=== PATIENT | female | born 1985 | race Caucasian/White ===

== ENCOUNTER → 2021-02-10 | Outpatient (CLI) | payer SELFPAY ==
[2021-02-10 20:11] LABS: BASOPHILS ABSOLUTE AUTO 0.04 K/mm3 (0.00-0.23); BASOPHILS PERCENT AUTO 1 % (0-2); EOSINOPHILS ABSOLUTE AUTO 0.04 K/mm3 (0.00-0.68); EOSINOPHILS PERCENT AUTO 1 % (0-6); Hematocrit 41.6 % (33.0-51.0); Hemoglobin 14.3 g/dL (11.5-16.0); IMMATURE GRAN ABSOLUTE AUTO 0.02 K/mm3 (0.00-0.10); IMMATURE GRAN PERCENT AUTO 0 % (0-1); LYMPHOCYTES ABSOLUTE AUTO 1.38 K/mm3 (0.84-5.20); LYMPHOCYTES PERCENT AUTO 28 % (21-46); MONOCYTES ABSOLUTE AUTO 0.31 K/mm3 (0.16-1.47); MONOCYTES PERCENT AUTO 6 % (4-13); Mean Corpuscular HGB 37.9 pg (26.0-34.0); Mean Corpuscular HGB Conc 34.4 g/dL (31.5-36.5); Mean Corpuscular Volume 110 fL (80-100); Mean Platelet Volume 10.7 fL (9.1-12.4); NEUTROPHILS ABSOLUTE AUTO 3.19 K/mm3 (1.96-9.15); NEUTROPHILS PERCENT AUTO 64 % (41-73); Platelet Count 224 K/mm3 (150-400); RDW Coefficient Variation 12.9 % (11.7-14.2); RDW Standard Deviation 52.8 fL (35.1-46.3); Red Blood Cell Count 3.77 M/mm3 (3.80-5.20); White Blood Cell Count 4.98 K/mm3 (4.00-11.30)
[2021-02-10 20:28] LABS: Alanine Aminotransfer (ALT/SGP 53 U/L (12-78); Albumin, Blood 3.5 g/dL (3.4-5.0); Alk Phos 91 U/L (50-136); Anion Gap 5 mmol/L (6-16); Aspartate Aminotrans (AST/SGOT 102 U/L (12-37); Bilirubin, Total 1.4 mg/dL (0.1-1.0); Blood Urea Nitrogen 12 mg/dL (8-24); Bun/Creatinine Ratio 30.7 (12.0-20.0); CO2, Blood 29 mmol/L (21-32); Calcium, Blood 8.9 mg/dL (8.5-10.1); Chloride, Blood 104 mmol/L (98-108); Creatinine, Blood 0.39 mg/dL (0.40-1.00); Globulin, Blood 3.4 g/dL (2.2-4.0); Glomerular Filtration Rate >60 (60-); Glucose, Blood 79 mg/dL (70-99); Sodium, Blood 138 mmol/L (136-145); Total Protein, Blood 6.9 g/dL (6.4-8.2)
[2021-02-10 20:32] LABS: Luteinizing Hormone 5.2 mIU/ml
== END | disposition home or self-care (01) ==
LOC: LAB SHORT 15:00
PROVIDERS: Family Medicine
DX: N39.0 Urinary tract infection, site not specified (principal); G62.9 Polyneuropathy, unspecified; N91.2 Amenorrhea, unspecified
CPT/HCPCS: 80053; 82607; 82746; 83001; 83002; 84146; 84443; 85025; 87086

== ENCOUNTER → 2021-06-08 | Outpatient (CLI) | payer OTHER ==
[~2021-06-08] MED LIST: GABA300 PO
[2021-06-08 14:08] LABS: Alanine Aminotransfer (ALT/SGP 58 U/L (12-78); Albumin, Blood 3.6 g/dL (3.4-5.0); Alk Phos 87 U/L (50-136); Anion Gap 8 mmol/L (6-16); Aspartate Aminotrans (AST/SGOT 64 U/L (12-37); Bilirubin, Total 1.4 mg/dL (0.1-1.0); Blood Urea Nitrogen 10 mg/dL (8-24); Bun/Creatinine Ratio 18.4 (12.0-20.0); CO2, Blood 23 mmol/L (21-32); Calcium, Blood 9.9 mg/dL (8.5-10.1); Chloride, Blood 106 mmol/L (98-108); Creatinine, Blood 0.54 mg/dL (0.40-1.00); Globulin, Blood 3.7 g/dL (2.2-4.0); Glomerular Filtration Rate >60 (60-); Glucose, Blood 95 mg/dL (70-99); Potassium, Blood 3.7 mmol/L (3.5-5.5); Sodium, Blood 137 mmol/L (136-145); Total Protein, Blood 7.3 g/dL (6.4-8.2)
[2021-06-09 08:10] LABS: HBSAG SCREEN Negative (Negative); HEP B CORE AB, TOT Negative (Negative); HEP C VIRUS AB <0.1 (0.0-0.9)
[2021-06-09 10:10] LABS: HIV SCREEN 4TH GENERATION WRFX Non Reactive (Non Reactive)
== END ==
LOC: LAB 12:00 → LAB SHORT 12:00
PROVIDERS: Family Medicine
DX: Z11.3 Encounter for screening for infections with a predominantly sexual mode of transmission (principal); R74.01 Elevation of levels of liver transaminase levels
CPT/HCPCS: 80053; 86704; 86708; 86803; 87340; 87389

== ENCOUNTER → 2023-04-18 | Outpatient (CLI) | payer BC, OTHER ==
[~2023-04-18] MED LIST changes: +Aldactone100 MG PO
== END ==
LOC: LAB SHORT 17:50 → LAB 17:50
DX: N39.0 Urinary tract infection, site not specified (principal)
CPT/HCPCS: 87086

== ENCOUNTER → 2023-07-21 | Outpatient (CLI) | payer BC, OTHER ==
[2023-07-21 15:26] LABS: Candida species (DNA Probe) Negative (NEGATIVE); G. vaginalis (DNA Probe) Negative (NEGATIVE); T. vaginalis (DNA Probe) Negative (NEGATIVE)
== END | disposition home or self-care (01) ==
LOC: LAB SHORT 11:58 → LAB 11:58
PROVIDERS: Registered Nurse Community Health
DX: N89.8 Other specified noninflammatory disorders of vagina (principal); R35.0 Frequency of micturition
CPT/HCPCS: 87077; 87086; 87186; 87480; 87510; 87660

== ENCOUNTER 2023-08-31 07:35 | Emergency (ER) | payer OTHER, BC ==
[~2023-08-31] VITALS: Ht 170.2 cm; Wt 59.0 kg
[2023-08-31] MEDS ORDERED: Ketorolac Tromethamine 30mg Vial IM ONE (08:30)
[2023-08-31 08:37] LABS: Source, Urine Clean Catch
[2023-08-31 08:43] LABS: Appearance, Urine Hazy (Clear); Blood, Urine Neg (Neg); Color, Urine Yellow (P-Yellow); Glucose Qualitative, Urine Neg (Neg); Ketones, Urine 2+ (Neg); Leukocyte Esterase, Urine 3+ (Neg); Nitrite, Urine Neg (Neg); Protein, Urine 2+ (Neg); Urobilinogen, Urine 3+ (Normal)
[2023-08-31 08:50] LABS: Bilirubin, Urine 2+ (Neg)
[2023-08-31 08:53] LABS: Bacteria Few /hpf; Mucus Light (0-Heavy); Squamous Epithelial Cells Many /hpf (Few)
[2023-08-31] MEDS ORDERED: FentaNYL Citrate 50 MCG/ML 2 ML Injection IV ONE (10:30)
[2023-08-31] MEDS ORDERED: LORazepam 2 MG/ML 1ML Injection IV ONE (11:10)
[2023-08-31 12:09] LABS: Albumin, Blood 3.7 g/dL (3.4-5.0); Bilirubin, Total 1.5 mg/dL (0.1-1.0); Bun/Creatinine Ratio 15.6 (12.0-20.0); Calcium, Blood 9.3 mg/dL (8.5-10.1); Creatinine, Blood 0.77 mg/dL (0.40-1.00); Globulin, Blood 3.8 g/dL (2.2-4.0); Total Protein, Blood 7.5 g/dL (6.4-8.2)
[2023-08-31 12:25] LABS: BASOPHILS ABSOLUTE AUTO 0.05 K/mm3 (0.00-0.23); BASOPHILS PERCENT AUTO 1 % (0-2); EOSINOPHILS PERCENT AUTO 0 % (0-6); Hematocrit 35.8 % (33.0-51.0); Hemoglobin 13.4 g/dL (11.5-16.0); IMMATURE GRAN ABSOLUTE AUTO 0.02 K/mm3 (0.00-0.10); IMMATURE GRAN PERCENT AUTO 0 % (0-1); LYMPHOCYTES ABSOLUTE AUTO 1.48 K/mm3 (0.84-5.20); LYMPHOCYTES PERCENT AUTO 21 % (21-46); MONOCYTES ABSOLUTE AUTO 0.93 K/mm3 (0.16-1.47); MONOCYTES PERCENT AUTO 13 % (4-13); Mean Corpuscular HGB Conc 37.4 g/dL (31.5-36.5); Mean Corpuscular Volume 107 fL (80-100); Mean Platelet Volume 10.9 fL (9.1-12.4); NEUTROPHILS ABSOLUTE AUTO 4.75 K/mm3 (1.96-9.15); NEUTROPHILS PERCENT AUTO 66 % (41-73); Platelet Count 204 K/mm3 (150-400); RDW Coefficient Variation 12.8 % (11.7-14.2); RDW Standard Deviation 50.4 fL (35.1-46.3); Red Blood Cell Count 3.35 M/mm3 (3.80-5.20); White Blood Cell Count 7.23 K/mm3 (4.00-11.30)
[2023-08-31] MEDS ORDERED: HYDROCODONE-AC473 ML PO (12:48)
[2023-08-31 13:13] VITALS: BP 126/76
[2023-08-31] MEDS ORDERED: Norco 5-325 Ta1 EACH PO (13:22)
== END 2023-08-31 13:29 | disposition home or self-care (01) ==
LOC: ER 07:35
PROVIDERS: Physician Assistant
DX: S02.612A Fracture of condylar process of left mandible, initial encounter for closed fracture (principal); S02.611A Fracture of condylar process of right mandible, initial encounter for closed fracture; S02.622A Fracture of subcondylar process of left mandible, initial encounter for closed fracture; S02.621A Fracture of subcondylar process of right mandible, initial encounter for closed fracture; W01.0XXA Fall on same level from slipping, tripping and stumbling without subsequent striking against object, initial encounter; S01.81XA Laceration without foreign body of other part of head, initial encounter; F17.290 Nicotine dependence, other tobacco product, uncomplicated; Z79.899 Other long term (current) drug therapy
CPT/HCPCS: 12011; 70450; 70486; 71101; 72125; 80053; 81001; 81025; 85025; 87086; 96372-59; 96374-59; 96375-59; 99284-25; J1885; J2060; J3010; L0160

== ENCOUNTER 2024-05-06 12:24 | Observation (INO) | payer BC, OTHER ==
[~2024-05-06] VITALS: Ht 170.2 cm; Wt 54.4 kg
[~2024-05-06 12:24] MED LIST changes: -KLOR-CON 1010 ME9 PO; -MULVITA PO; -SPIR25 PO
[2024-05-06] MEDS ORDERED: LORazepam 2 MG/ML 1ML Injection IV ONE (13:15)
[2024-05-06] MEDS ORDERED: NS 1,000 ML IV SCH ×2 (13:15→16:50)
[2024-05-06] MEDS ORDERED: DiphenhydrAMINE HCl 50 MG/ML 1ML Vial IV ONE (13:15)
[2024-05-06 14:46] LABS: Ethanol (Alcohol), Blood, Med <3 mg/dL
[2024-05-06 14:51] LABS: Alanine Aminotransfer (ALT/SGP 33 U/L (12-78); Albumin, Blood 3.8 g/dL (3.4-5.0); Alk Phos 119 U/L (50-136); Anion Gap 23 mmol/L (3-11); Aspartate Aminotrans (AST/SGOT 68 U/L (12-37); Bilirubin, Total 3.6 mg/dL (0.1-1.0); Blood Urea Nitrogen 20 mg/dL (8-24); Bun/Creatinine Ratio 27.4 (12.0-20.0); CO2, Blood 23 mmol/L (21-32); Calcium, Blood 8.6 mg/dL (8.5-10.1); Chloride, Blood 86 mmol/L (98-108); Creatinine, Blood 0.73 mg/dL (0.40-1.00); Globulin, Blood 3.9 g/dL (2.2-4.0); Glomerular Filtration Rate 108 (60-); Glucose, Blood 103 mg/dL (70-99); Phosphorus, Blood 0.7 mg/dL (2.5-4.9); Potassium, Blood 2.8 mmol/L (3.5-5.5); Sodium, Blood 129 mmol/L (136-145); Total Protein, Blood 7.7 g/dL (6.4-8.2)
[2024-05-06 15:01] LABS: BASOPHILS ABSOLUTE AUTO 0.05 K/mm3 (0.00-0.23); BASOPHILS PERCENT AUTO 0 % (0-2); EOSINOPHILS PERCENT AUTO 0 % (0-6); Hemoglobin 14.1 g/dL (11.5-16.0); IMMATURE GRAN ABSOLUTE AUTO 0.08 K/mm3 (0.00-0.10); IMMATURE GRAN PERCENT AUTO 1 % (0-1); LYMPHOCYTES PERCENT AUTO 8 % (21-46); MONOCYTES ABSOLUTE AUTO 0.98 K/mm3 (0.16-1.47); MONOCYTES PERCENT AUTO 7 % (4-13); Mean Corpuscular HGB 39.9 pg (26.0-34.0); Mean Corpuscular Volume 108 fL (80-100); Mean Platelet Volume 11.4 fL (9.1-12.4); NEUTROPHILS ABSOLUTE AUTO 12.46 K/mm3 (1.96-9.15); NEUTROPHILS PERCENT AUTO 85 % (41-73); NRBC ABSOLUTE 0.02 K/mm3 (0.00-0.02); NRBC Auto 0.1 /100 WBC (0.0-0.2); Platelet Count 291 K/mm3 (150-400); RDW Coefficient Variation 13.3 % (11.7-14.2); RDW Standard Deviation 53.4 fL (35.1-46.3); Red Blood Cell Count 3.53 M/mm3 (3.80-5.20); White Blood Cell Count 14.77 K/mm3 (4.00-11.30)
[2024-05-06 15:05] LABS: Mean Corpuscular HGB Conc 37.1 g/dL (31.5-36.5)
[2024-05-06] MEDS ORDERED: Mag Sulfate 1 GM/D5% 100ML 100 ML IV ONE (15:15)
[2024-05-06] MEDS ORDERED: Folic Acid 1 MG TAB PO ONE (15:15)
[2024-05-06] MEDS ORDERED: Thiamine HCl 100 MG in NS 50 ML IV ONE (15:15)
[2024-05-06] MEDS ORDERED: Potassium Chl 20MEQ/Water100ML 100 ML IV ONE (15:55)
[2024-05-06] MEDS ORDERED: Lactated Ringer's 1,000 ML IV SCH (16:50)
[2024-05-06] MEDS ORDERED: FLU VACC TS2024-25(6MOS UP)/PF 45 MCG/0.5 ML SYRINGE IM PRN (16:55)
[2024-05-06] MEDS ORDERED: Sodium Phosphate 20 MM in Dextrose 5% 500 ML IV STA (16:56)
[2024-05-06] MEDS ORDERED: Potassium Chloride 20 MEQ/15 ML UDC PO ONE ×2 (17:00)
[2024-05-06] MEDS ORDERED: Magnesium Sulf 2 GM/Water 50ML 50 ML IV ONE (17:00)
[2024-05-06 18:38] LABS: Influenza A, PCR NEGATIVE (NEGATIVE); Influenza B, PCR NEGATIVE (NEGATIVE); Resp Syncytial Virus, PCR NEGATIVE (NEGATIVE); SARS-Cov-2 (COVID-19) PCR, MMC NEGATIVE (NEGATIVE)
[2024-05-06] MEDS ORDERED: SPIR25 PO (19:21)
[2024-05-06 19:24] VITALS: BP 104/73
[2024-05-06] MEDS ORDERED: Acetaminophen 500 MG Tab PO ONE (22:45)
[2024-05-06 23:14] LABS: Bun/Creatinine Ratio 25.2 (12.0-20.0); Calcium, Blood 7.3 mg/dL (8.5-10.1); Creatinine, Blood 0.52 mg/dL (0.40-1.00); Potassium, Blood 2.4 mmol/L (3.5-5.5)
[2024-05-06] MEDS ORDERED: Potassium Chloride 20 MEQ TabCR PO ONE (23:30)
[2024-05-06] MEDS ORDERED: POTASSIUM PHOSPHATE DIBASIC IV ONE (23:35)
[2024-05-07] MEDS ORDERED: Potassium Chl 20MEQ/Water100ML 100 ML IV SCH (00:05)
[2024-05-07] MEDS ORDERED: Potassium Chloride 20 MEQ TabCR PO ONE ×2 (03:25→07:35)
[2024-05-07 04:01] VITALS: BP 89/57
[2024-05-07 05:20] LABS: BASOPHILS ABSOLUTE AUTO 0.04 K/mm3 (0.00-0.23); BASOPHILS PERCENT AUTO 1 % (0-2); EOSINOPHILS ABSOLUTE AUTO 0.05 K/mm3 (0.00-0.68); EOSINOPHILS PERCENT AUTO 1 % (0-6); Hematocrit 28.8 % (33.0-51.0); Hemoglobin 10.6 g/dL (11.5-16.0); IMMATURE GRAN ABSOLUTE AUTO 0.04 K/mm3 (0.00-0.10); IMMATURE GRAN PERCENT AUTO 1 % (0-1); LYMPHOCYTES ABSOLUTE AUTO 1.93 K/mm3 (0.84-5.20); LYMPHOCYTES PERCENT AUTO 27 % (21-46); MONOCYTES PERCENT AUTO 7 % (4-13); Mean Corpuscular HGB 40.2 pg (26.0-34.0); Mean Corpuscular HGB Conc 36.8 g/dL (31.5-36.5); Mean Corpuscular Volume 109 fL (80-100); Mean Platelet Volume 10.1 fL (9.1-12.4); NEUTROPHILS ABSOLUTE AUTO 4.69 K/mm3 (1.96-9.15); NEUTROPHILS PERCENT AUTO 65 % (41-73); Platelet Count 175 K/mm3 (150-400); RDW Coefficient Variation 13.7 % (11.7-14.2); RDW Standard Deviation 54.9 fL (35.1-46.3); Red Blood Cell Count 2.64 M/mm3 (3.80-5.20); White Blood Cell Count 7.25 K/mm3 (4.00-11.30)
[2024-05-07 05:50] LABS: Albumin, Blood 2.9 g/dL (3.4-5.0); Bilirubin, Total 1.3 mg/dL (0.1-1.0); Bun/Creatinine Ratio 21.5 (12.0-20.0); Calcium, Blood 7.4 mg/dL (8.5-10.1); Creatinine, Blood 0.51 mg/dL (0.40-1.00); Magnesium, Blood 2.3 mg/dL (1.6-2.4); Potassium, Blood 2.8 mmol/L (3.5-5.5); Total Protein, Blood 5.9 g/dL (6.4-8.2)
--- NOTE | 2024-05-07 05:56 | NUR ---
SHIFT SUMMARY PT IS ALERT AND ORIENTED TIMES 4 BED. PT ADMITTED FROM ED FOR ABNORMAL ELECTROLYTE IMBALANCE AND CARPOPEDAL SPASMS. PT HAS HX OF PTSD, DEPRESSION, ALCOHOLISM, AND METH ABUSE. AT APPROXIMATELY 2300 RECEIVED CRITICAL LAB RESULT OF 2.4 POTASSIUM LEVEL. HEATER HELPER FORGE CONTACTED AND ADMINISTER 40MEQ OF POTASSIUM AND STARTED POTASSIUM CHLORIDE 20MEQ/100ML TIMES 3. PT WAS ABLE TO FINISH 1 BAG BUT BURNING BECAME UNBEARABLE AND HEATER HELPER FORGE WAS CONTACTED AND NEW ORDER OBTAINED FOR ADDITIONAL 40MEQ OF POTASSIUM. LAB LEVELS TO BE DRAWN THIS AM. PT WISHES TO MAKE SURE SHE CAN GET A NOTE FROM DR OR NURSE FOR WORK. PT APPEARS TO BE RESTING COMFORTABLY IN BED. BED IN LOW POSITION, CALL LIGHT WITHIN REACH, RAILS TIMES 2.
[2024-05-07 07:03] VITALS: BP 92/66
[2024-05-07] MEDS ORDERED: Potassium Phosphate Dibasic 30 MM in Dextrose 5% 500 ML IV STA (07:34)
[2024-05-07] MEDS ORDERED: Folic Acid 1 MG TAB PO SCH (09:00)
[2024-05-07] MEDS ORDERED: Multivitamins 1 Tab PO SCH (09:00)
[2024-05-07] MEDS ORDERED: Thiamine HCl 100 MG Tab PO SCH (09:00)
[2024-05-07] MEDS ORDERED: Enoxaparin 40 MG/0.4 ML SYR SC SCH (09:00)
[2024-05-07] MEDS ORDERED: Lactated Ringer's 1,000 ML IV SCH (11:50)
[2024-05-07 12:03] LABS: Source, Urine Clean Catch
[2024-05-07 12:11] LABS: Bilirubin, Urine Neg (Neg); Blood, Urine Neg (Neg); Glucose Qualitative, Urine Neg (Neg); Ketones, Urine Neg (Neg); Leukocyte Esterase, Urine Neg (Neg); Nitrite, Urine Neg (Neg); Protein, Urine Neg (Neg); Urobilinogen, Urine 1+ (Normal)
[2024-05-07 12:15] LABS: Appearance, Urine Clear (Clear); Color, Urine Yellow (P-Yellow)
[2024-05-07 12:54] LABS: U Amphetamine Screen Not Detected; U Barbituate Screen Not Detected; U Benzodiazapine Screen DETECTED; U Buprenorphine Screen Not Detected; U Cannabinoids Screen Not Detected; U Cocaine Screen Not Detected; U Methadone Screen Not Detected; U Methamphetamine Screen Not Detected; U Opiates Screen Not Detected; U Oxycodone Screen Not Detected; U Phencyclidine Screen Not Detected
[2024-05-07] MEDS ORDERED: KLOR-CON 1010 ME9 PO (13:41)
[2024-05-07] MEDS ORDERED: MULVITA PO (13:42)
--- NOTE | 2024-05-07 14:30 | NUR ---
DISCHARGED TO HOME WITH A FRIEND
--- NOTE | 2024-05-07 15:40 | NUR ---
THIS MEDICINE TECH HAS REVIEWED AND AGREES WITH ALL ASSESSMENTS BY ALEISHA PEDRAZA.
== END 2024-05-07 14:27 | disposition home or self-care (01) ==
LOC: ER 12:24 → MEDS 12:25
PROVIDERS: Nurse Practitioner Acute Care; Student in an Organized Health Care Education/Training Program; ADMIT Internal Medicine
DX: E87.8 Other disorders of electrolyte and fluid balance, not elsewhere classified (principal); A41.9 Sepsis, unspecified organism; F10.20 Alcohol dependence, uncomplicated; E80.6 Other disorders of bilirubin metabolism; F43.10 Post-traumatic stress disorder, unspecified; F17.290 Nicotine dependence, other tobacco product, uncomplicated; Z79.899 Other long term (current) drug therapy
CPT/HCPCS: 0241U; 36415; 71045; 80048; 80053; 80320; 81003; 81025; 83735; 84100; 84132; 85025; 93005; 93010; 96365; 96366; 96367; 96368; 96372; 96375; 96376; 99285-25; A9270; G0378; J1200; J1650; J2060; J3411; J3475; J3480; J7060; J7120

== ENCOUNTER → 2024-05-06 | Outpatient (CLI) | payer BC, OTHER ==
[~2024-05-06] MED LIST changes: +HYDROCODONE-AC473 ML PO; +KLOR-CON 1010 ME9 PO; +MULVITA PO; +Norco 5-325 Ta1 EACH PO; +SPIR25 PO
[2024-05-06 12:27] LABS: BASOPHILS ABSOLUTE AUTO 0.07 K/mm3 (0.00-0.23); BASOPHILS PERCENT AUTO 1 % (0-2); EOSINOPHILS ABSOLUTE AUTO 0.02 K/mm3 (0.00-0.68); EOSINOPHILS PERCENT AUTO 0 % (0-6); Hematocrit 38.9 % (33.0-51.0); Hemoglobin 14.3 g/dL (11.5-16.0); IMMATURE GRAN ABSOLUTE AUTO 0.05 K/mm3 (0.00-0.10); IMMATURE GRAN PERCENT AUTO 1 % (0-1); LYMPHOCYTES ABSOLUTE AUTO 2.17 K/mm3 (0.84-5.20); LYMPHOCYTES PERCENT AUTO 22 % (21-46); MONOCYTES ABSOLUTE AUTO 0.87 K/mm3 (0.16-1.47); MONOCYTES PERCENT AUTO 9 % (4-13); Mean Corpuscular HGB 40.2 pg (26.0-34.0); Mean Corpuscular HGB Conc 36.8 g/dL (31.5-36.5); Mean Corpuscular Volume 109 fL (80-100); Mean Platelet Volume 11.2 fL (9.1-12.4); NEUTROPHILS ABSOLUTE AUTO 6.52 K/mm3 (1.96-9.15); NEUTROPHILS PERCENT AUTO 67 % (41-73); Platelet Count 282 K/mm3 (150-400); RDW Coefficient Variation 13.4 % (11.7-14.2); RDW Standard Deviation 54.4 fL (35.1-46.3); Red Blood Cell Count 3.56 M/mm3 (3.80-5.20)
[2024-05-06 12:48] LABS: Albumin, Blood 4.4 g/dL (3.4-5.0); Bilirubin, Total 3.4 mg/dL (0.1-1.0); Bun/Creatinine Ratio 17.1 (12.0-20.0); Creatinine, Blood 1.17 mg/dL (0.40-1.00); Globulin, Blood 4.3 g/dL (2.2-4.0); Magnesium, Blood 1.2 mg/dL (1.6-2.4); Potassium, Blood 3.6 mmol/L (3.5-5.5); Thyroid Stimulating Hormone 1.571 uIU/mL (0.360-4.800); Total Protein, Blood 8.7 g/dL (6.4-8.2)
== END ==
LOC: LAB 12:23 → LAB SHORT 12:23
PROVIDERS: Physician Assistant Surgical
DX: R42 Dizziness and giddiness (principal); R53.83 Other fatigue
CPT/HCPCS: 80053; 82607; 82746; 83735; 84443; 85025; 85379

== ENCOUNTER 2024-11-25 21:41 | Inpatient (IN) | payer BC, OTHER ==
[~2024-11-25] VITALS: Ht 167.6 cm; Wt 60.2 kg
[~2024-11-25 21:41] MED LIST changes: +KLOR-CON 1010 ME9 PO; +MULVITA PO; +SPIR25 PO
[2024-11-25] MEDS ORDERED: NS 1,000 ML IV ONE ×2 (22:16→22:56)
[2024-11-25 22:30] LABS: Base Excess Venous -24.8 mmol/L; PCO2 Venous 21.5 mmHg (38-42)
[2024-11-25 22:32] LABS: pH Blood Venous 7.04 (7.34-7.37)
[2024-11-25 22:39] LABS: BASOPHILS PERCENT AUTO 0 % (0-2); EOSINOPHILS ABSOLUTE AUTO 0.01 K/mm3 (0.00-0.68); EOSINOPHILS PERCENT AUTO 0 % (0-6); Hematocrit 44.2 % (33.0-51.0); Hemoglobin 15.6 g/dL (11.5-16.0); IMMATURE GRAN ABSOLUTE AUTO 0.45 K/mm3 (0.00-0.10); IMMATURE GRAN PERCENT AUTO 2 % (0-1); LYMPHOCYTES ABSOLUTE AUTO 1.18 K/mm3 (0.84-5.20); LYMPHOCYTES PERCENT AUTO 4 % (21-46); MONOCYTES ABSOLUTE AUTO 2.58 K/mm3 (0.16-1.47); MONOCYTES PERCENT AUTO 9 % (4-13); Mean Corpuscular HGB 37.6 pg (26.0-34.0); Mean Corpuscular HGB Conc 35.3 g/dL (31.5-36.5); Mean Corpuscular Volume 107 fL (80-100); Mean Platelet Volume 11.6 fL (9.1-12.4); NEUTROPHILS PERCENT AUTO 85 % (41-73); Platelet Count 301 K/mm3 (150-400); RDW Coefficient Variation 11.9 % (11.7-14.2); RDW Standard Deviation 47.2 fL (35.1-46.3); Red Blood Cell Count 4.15 M/mm3 (3.80-5.20); White Blood Cell Count 28.02 K/mm3 (4.00-11.30)
[2024-11-25] MEDS ORDERED: NS 1,000 ML IV SCH (23:00)
[2024-11-25] MEDS ORDERED: CefTRIAXone Sodium 1,000 MG in NS 100 ML IV ONE (23:05)
[2024-11-25 23:11] LABS: Bilirubin, Total 1.4 mg/dL (0.1-1.0); Bun/Creatinine Ratio 11.3 (12.0-20.0); Calcium, Blood 10.7 mg/dL (8.5-10.1); Creatinine, Blood 3.18 mg/dL (0.40-1.00); Globulin, Blood 4.8 g/dL (2.2-4.0); Potassium, Blood 3.6 mmol/L (3.5-5.5); Total Protein, Blood 9.8 g/dL (6.4-8.2)
[2024-11-25] MEDS ORDERED: Ketorolac Tromethamine 15mg Vial IV ONE (23:35)
[2024-11-26] VITALS (58 sets, daily range): BP systolic 89–142; BP diastolic 58–110
[2024-11-26] MEDS ORDERED: NS 1,000 ML IV SCH (00:10)
[2024-11-26] MEDS ORDERED: Morphine Sulfate 4 MG/1 ML Injection IV ONE (00:15)
[2024-11-26] MEDS ORDERED: Thiamine HCl 100 MG in NS 50 ML IV ONE (00:20)
[2024-11-26] MEDS ORDERED: Ondansetron HCl 2 MG / ML 2ML Vial ONE (00:36)
[2024-11-26 01:12] LABS: Magnesium, Blood 2.8 mg/dL (1.6-2.4)
[2024-11-26] MEDS ORDERED: Folic Acid 1 MG in NS 50 ML IV ONE (01:40)
[2024-11-26] MEDS ORDERED: Sodium Bicarb 8.4% 1 MEQ/ML 50 ML Vial IV ONE (02:00)
[2024-11-26] MEDS ORDERED: Ondansetron HCl 2 MG / ML 2ML Vial IV PRN ×2 (02:05→12:55)
[2024-11-26] MEDS ORDERED: FentaNYL Citrate 50 MCG/ML 2 ML Injection IV PRN (02:10)
[2024-11-26] MEDS ORDERED: Pantoprazole Sodium 40 MG Injection IV SCH (02:17)
[2024-11-26] MEDS ORDERED: Sodium Bicarb 8.4% Inj 100 MEQ in Sodium Chloride 0.45% 1,000 ML IV SCH (02:20)
[2024-11-26 02:38] LABS: BASOPHILS ABSOLUTE AUTO 0.04 K/mm3 (0.00-0.23); BASOPHILS PERCENT AUTO 0 % (0-2); EOSINOPHILS ABSOLUTE AUTO 0.01 K/mm3 (0.00-0.68); EOSINOPHILS PERCENT AUTO 0 % (0-6); Hematocrit 34.7 % (33.0-51.0); Hemoglobin 12.5 g/dL (11.5-16.0); IMMATURE GRAN ABSOLUTE AUTO 0.18 K/mm3 (0.00-0.10); IMMATURE GRAN PERCENT AUTO 1 % (0-1); LYMPHOCYTES ABSOLUTE AUTO 0.93 K/mm3 (0.84-5.20); LYMPHOCYTES PERCENT AUTO 5 % (21-46); MONOCYTES ABSOLUTE AUTO 1.43 K/mm3 (0.16-1.47); MONOCYTES PERCENT AUTO 8 % (4-13); Mean Corpuscular HGB 37.2 pg (26.0-34.0); Mean Corpuscular Volume 103 fL (80-100); Mean Platelet Volume 10.9 fL (9.1-12.4); NEUTROPHILS PERCENT AUTO 86 % (41-73); Platelet Count 177 K/mm3 (150-400); RDW Coefficient Variation 11.6 % (11.7-14.2); Red Blood Cell Count 3.36 M/mm3 (3.80-5.20); White Blood Cell Count 18.59 K/mm3 (4.00-11.30)
[2024-11-26 02:56] LABS: Cholesterol 246 mg/dL (50-200); Triglycerides 337 mg/dL (30-140)
[2024-11-26 02:58] LABS: Source, Urine Straight Cath
[2024-11-26 03:01] LABS: Bilirubin, Urine Neg (Neg); Blood, Urine 5+ (Neg); Glucose Qualitative, Urine Neg (Neg); Ketones, Urine 4+ (Neg); Leukocyte Esterase, Urine 1+ (Neg); Nitrite, Urine Neg (Neg); Protein, Urine 3+ (Neg); Specific Gravity, Urine 1.015 (1.003-1.022); Urobilinogen, Urine 1+ (Normal)
[2024-11-26 03:08] LABS: Appearance, Urine Hazy (Clear); Bacteria Mod /hpf; Color, Urine Yellow (P-Yellow); Red Blood Cells, Urine 25-50 /hpf (0-2); Squamous Epithelial Cells Few /hpf (Few); White Blood Cells, Urine 50-100 /hpf (0-5)
[2024-11-26 03:25] LABS: Albumin, Blood 3.6 g/dL (3.4-5.0); Bilirubin, Total 1.5 mg/dL (0.1-1.0); Bun/Creatinine Ratio 12.9 (12.0-20.0); Creatinine, Blood 2.55 mg/dL (0.40-1.00); Globulin, Blood 3.6 g/dL (2.2-4.0)
[2024-11-26 03:25] LABS: U Amphetamine Screen Not Detected; U Barbituate Screen Not Detected; U Benzodiazapine Screen Not Detected; U Buprenorphine Screen Not Detected; U Cannabinoids Screen Not Detected; U Cocaine Screen Not Detected; U Methadone Screen Not Detected; U Methamphetamine Screen Not Detected; U Opiates Screen DETECTED; U Oxycodone Screen Not Detected; U Phencyclidine Screen Not Detected
[2024-11-26 03:26] LABS: Calcium, Blood 8.2 mg/dL (8.5-10.1); Total Protein, Blood 7.2 g/dL (6.4-8.2)
--- NOTE | 2024-11-26 05:30 | NUR ---
SHIFT SUMMARY PT ARRIVED TO UNIT AT 0303 VIA BED. PT IS A/OX4, RESPONDS APPROPRIATLY. ON ROOM AIR, DENIES SOB. HR 80-100'S, MAPS > 65, SINUS W/ PVC'S ON MONITOR. HAS NOT VOIDED SINCE ARRIVAL TO UNIT, BUT VOIDED IN ED RIGHT BEFORE TRANSPORT. PT C/O NAUSEA, NO VOMITING, ZOFRAN ON SEP. NO SKIN ISSUES NOTED. ON BICARB GTT AT 125ML/H. PT C/O OF ABD/BACK PAIN BUT CURRENTLY AT A TOLERABLE LEVEL. PRNS ON SEP. PT HAS LEVO ORDERED BUT NEVER STARTED SINCE MAPS > 65 AFTER RECEIVING 3L IN ED. PT HAS ETOH HX OF 2 DRINKS OF WHISKY DAILY AND REPORTS LAST DRINK ONE WEEK AGO BEFORE SHE STARTED TO GET SICK. WA PRN INTERVENTION ADDED. CALL PT RESITNG IN BED, BREATHING EVEN AND UNLABORED. CALL LIGHT IN REACH.
[2024-11-26 05:37] LABS: Albumin, Blood 3.3 g/dL (3.4-5.0); Bilirubin, Total 1.3 mg/dL (0.1-1.0); Bun/Creatinine Ratio 14.6 (12.0-20.0); Calcium, Blood 8.3 mg/dL (8.5-10.1); Creatinine, Blood 2.19 mg/dL (0.40-1.00); Globulin, Blood 3.3 g/dL (2.2-4.0); Potassium, Blood 2.6 mmol/L (3.5-5.5); Total Protein, Blood 6.6 g/dL (6.4-8.2)
[2024-11-26] MEDS ORDERED: Potassium Chloride 40 MEQ in NS 250 ML IV ONE (06:30)
[2024-11-26] MEDS ORDERED: Insulin Human Lispro 100 Units/ML 3ML Syringe SC SCH (07:30)
[2024-11-26] MEDS ORDERED: Heparin Sodium,Porcine 5,000 UNIT/0.5 ML SDV SC SCH (09:00)
[2024-11-26] MEDS ORDERED: Folic Acid 1 MG in NS 50 ML IV SCH (09:00)
[2024-11-26] MEDS ORDERED: Morphine Sulfate 4 MG/1 ML Injection IV PRN (12:55)
--- NOTE | 2024-11-26 12:56 | NUR ---
PHYSICIAN NOTIFICATION PT C/O 02/24 GENERALIZED BODY ACHES/PAINS BUT FEARFUL TO RECEIVE FENTANYL PER SEP AND REQUESTS MEDICATION BE CHANGED TO MORPHINE WHICH SHE RECEIVED IN THE ER. PT CONTINUES TO EXPERIENCE EPISODES OF EMESIS. ZOFRAN INCREASED TO Q4H. WILL HOLD NEXT TRAY UNTIL N/V IMPROVES.
[2024-11-26 15:38] LABS: Bun/Creatinine Ratio 16.1 (12.0-20.0); Calcium, Blood 8.6 mg/dL (8.5-10.1); Creatinine, Blood 1.37 mg/dL (0.40-1.00); Potassium, Blood 2.6 mmol/L (3.5-5.5)
[2024-11-26] MEDS ORDERED: Potassium Chl 20MEQ/Water100ML 100 ML IV SCH (15:55)
[2024-11-26] MEDS ORDERED: Potassium Chloride 40 MEQ in NS 250 ML IV SCH (16:10)
--- NOTE | 2024-11-26 16:19 | NUR ---
SHIFT SUMMARY PT LETHARGIC, ORIENTED X4, COOPERATIVE. CIWA 6. AFEBRILE. GENERALIZED PAIN CONTROLLED WITH PRN MORPHINE. N/V, PRN ZOFRAN. ROOM AIR. NS-ST 70S-110S, BP WNL. CLEAR LIQUID DIET, POOR ORAL INTAKE. POTASSIUM REPLACED THIS AM, REPEAT SERUM AT 1500 RESULTED 2.6 AGAIN. ICU ELECTROLYTE REPLACEMENT PROTOCOL ORDERED PER VERBAL ORDER BY DR. CASH. PT TO RECEIVE AN ADDITIONAL 80 MEQ K OVER 8 HOURS AND REPEAT SERUM FOLLOW UP. PT ENDORSES CONSTIPATION, NO BM FOR SHIFT. HOLDING BOWEL REGIMEN AT THIS TIME PER GI/SURGERY TO ALLOW FOR GI REST D/T PANCREATITIS. UOP X1, AMBULATORY WITH NURSE ASSIST TO TOILET. GENERALIZED WEAKNESS. PIV X2. BICARB GTT INFUSING. OTHER TRENDING LABS IMPROVING. SAFETY, COMFORT, HYGIENE ADDRESSED.
--- NOTE | 2024-11-26 20:00 | NUR ---
ASSUMPTION OF CARE ASSUMED CARE OF PATIENT AT 1900. RECIEVED REPORT FROM DAY NURSE. PT IS A&O X 4 AND CAN VERBALIZE NEEDS, LETHARGIC AT TIMES. PT AMBULATES IN THE ROOM WITH SBA, RESPOSIITONS SELF IN BED. CONTINUOUS CARDIAC MONITORING IN PLACE. MONITOR SHOWS NORMAL SINUS RHYTHM. HR HAS BEEN BETWEEN 70-90, MAP >65. CIWA IS A 2 UPON EXAMINATION. PT REPORTS GENERALIZED PAIN, MEDICATED PER EMAR. PIV IN PLACE TO RAC AND LEFT HAND. AMBULATED TO BEDSIDE TOILET TO VOID. BED IN LOWEST POSITION, CALL LIGHT WITHIN REACH. CARE CONTINUES.
[2024-11-26] MEDS ORDERED: Thiamine HCl 100 MG in NS 50 ML IV SCH (21:00)
[2024-11-27] VITALS (13 sets, daily range): BP systolic 94–116; BP diastolic 59–84
[2024-11-27] MEDS ORDERED: NS 250 ML IV PRN (00:35)
[2024-11-27 03:36] LABS: Hematocrit 29.1 % (33.0-51.0); Hemoglobin 10.6 g/dL (11.5-16.0); Mean Corpuscular HGB 36.9 pg (26.0-34.0); Mean Corpuscular HGB Conc 36.4 g/dL (31.5-36.5); Mean Corpuscular Volume 101 fL (80-100); Mean Platelet Volume 11.2 fL (9.1-12.4); Platelet Count 113 K/mm3 (150-400); RDW Coefficient Variation 11.5 % (11.7-14.2); RDW Standard Deviation 42.7 fL (35.1-46.3); Red Blood Cell Count 2.87 M/mm3 (3.80-5.20); White Blood Cell Count 11.54 K/mm3 (4.00-11.30)
[2024-11-27 03:59] LABS: Magnesium, Blood 1.2 mg/dL (1.6-2.4)
[2024-11-27 04:02] LABS: Albumin, Blood 2.8 g/dL (3.4-5.0); Bilirubin, Total 0.6 mg/dL (0.1-1.0); Calcium, Blood 7.9 mg/dL (8.5-10.1); Creatinine, Blood 0.88 mg/dL (0.40-1.00); Globulin, Blood 2.8 g/dL (2.2-4.0); Potassium, Blood 3.1 mmol/L (3.5-5.5); Total Protein, Blood 5.6 g/dL (6.4-8.2)
[2024-11-27 04:03] LABS: Phosphorus, Blood 0.6 mg/dL (2.5-4.9)
[2024-11-27] MEDS ORDERED: Magnesium Sulf 2 GM/Water 50ML 50 ML IV ONE (04:25)
[2024-11-27] MEDS ORDERED: Potassium Phosphate Dibasic 30 MM in Dextrose 5% 500 ML IV ONE (04:25)
--- NOTE | 2024-11-27 06:11 | NUR ---
SHIFT SUMMARY PT WAS A&O X4 AND SLEPT WELL THROUGH THE NIGHT. HR STAYED BETWEEN 70-90. MAP WAS CONSISTANTLY >65. CIWA SCORE BETWEEN 2-6 THROUGH THE NIGHT. PT AMBULATES IN HER ROOM WITH STAND BY ASSIST. PT ABDOMEN TENDER AND PAINFUL TO PALPATION, MEDICATED PER EMAR. LEFT WRIST PIV, PATENT, FLUSHES. RIGHT AC PIV, PATENT AND FLUSHES. O2 SATURATION HAS BEEN >95%. BED IN LOWEST POSITION, CARE CONTINUES.
[2024-11-27] MEDS ORDERED: Polyethylene Glycol 3350 17 gm PO PRN (11:15)
[2024-11-27] MEDS ORDERED: Lactulose 20 GM/30 ML UDC PO ONE (11:15)
[2024-11-27] MEDS ORDERED: Docusate Sodium/Senna 1 Tab PO SCH (12:00)
--- NOTE | 2024-11-27 13:22 | NUR ---
PT TRANSFERRED TO MEDICAL FLOOR, ROOM 329. GAVE REPORT TO PIPPA ALONZO, STUDENT NURSE. TRANSFERRED PT VIA WHEELCHAIR AND CONFIRMED ALL OF HER BELONGINGS WERE GATHERED. AIRAM REICH RN AND I MOVED HER TO MED ROOM 329 AND TRANSFERRED CARE TO [employer] AND PIPPA ALONZO, STUDENT NURSE.
[2024-11-27 14:10] LABS: Magnesium, Blood 2.2 mg/dL (1.6-2.4); Phosphorus, Blood 1.2 mg/dL (2.5-4.9); Potassium, Blood 2.8 mmol/L (3.5-5.5)
--- NOTE | 2024-11-27 15:03 | NUR ---
THIS CEMENTER CALLED DR. CASH AT 1500 TO NOTIFY OF PATIENT'S RECENT POTASSIUM OF 2.8. DR. CASH ADVISED TO GIVE PATIENT 40 MEQ OF POTASSIUM.
[2024-11-27] MEDS ORDERED: Potassium Chloride 20 MEQ TabCR PO ONE (15:05)
--- NOTE | 2024-11-27 15:10 | NUR ---
1320- ARRIVED ON MEDICAL FLOOR IN STABLE CONDITION AFTER RECEIVING REPORT FROM BPM ARCHITECT.
--- NOTE | 2024-11-27 18:40 | NUR ---
SHIFT SUMMARY: PATIENT TRANSFERRED FROM ICU THIS AFTERNOON, ADMITTED WITH SUSPECTED ACUTE PANCREATITIS. SHE IS AOX4 AND REPORTS PAIN OF 6/10. MEDICATED PER MAR. STANDBY ASSIST WHEN AMBULATING TO THE BATHROOM OR BEDSIDE COMMODE. USES CALL LIGHT AND COMMUNICATES NEEDS APPROPRIATELY. PATIENT IS CURRENTLY MENSTRUATING, I LEFT EXTRA SANITARY PADS IN THE BATHROOM FOR HER. NO ACUTE EVENTS, PATIENT CURRENLTLY RESTING IN BED WITH LIGHTS OFF AND CALL LIGHT WITHIN REACH.
[2024-11-28 04:20] VITALS: BP 103/66
[2024-11-28 05:58] LABS: Hematocrit 30.2 % (33.0-51.0); Hemoglobin 10.7 g/dL (11.5-16.0); Mean Corpuscular HGB 37.5 pg (26.0-34.0); Mean Corpuscular HGB Conc 35.4 g/dL (31.5-36.5); Mean Platelet Volume 11.5 fL (9.1-12.4); Platelet Count 81 K/mm3 (150-400); RDW Coefficient Variation 11.8 % (11.7-14.2); RDW Standard Deviation 46.3 fL (35.1-46.3); Red Blood Cell Count 2.85 M/mm3 (3.80-5.20); White Blood Cell Count 7.69 K/mm3 (4.00-11.30)
--- NOTE | 2024-11-28 06:10 | NUR ---
SHIFT SUMMARY; PATIENT SLEPT IN LONG INTERVALS, UP TO BS FOR VOIDS WITH STAND BY ASSIST.DID NOT REQUIRE ANY PRN PAIN MEDS THIS SHIFT. TELE SR @ 88.
[2024-11-28 06:18] LABS: Magnesium, Blood 2.1 mg/dL (1.6-2.4)
[2024-11-28 06:20] LABS: Albumin, Blood 2.8 g/dL (3.4-5.0); Anion Gap 7 mmol/L (3-11); Blood Urea Nitrogen 7 mg/dL (8-24); Bun/Creatinine Ratio 9.9 (12.0-20.0); CO2, Blood 31 mmol/L (21-32); Calcium, Blood 6.9 mg/dL (8.5-10.1); Chloride, Blood 100 mmol/L (98-108); Creatinine, Blood 0.71 mg/dL (0.40-1.00); Glomerular Filtration Rate 111 (60-); Glucose, Blood 101 mg/dL (70-99); Phosphorus, Blood 1.2 mg/dL (2.5-4.9); Potassium, Blood 3.3 mmol/L (3.5-5.5); Sodium, Blood 135 mmol/L (136-145)
[2024-11-28 06:23] LABS: Mean Corpuscular Volume 105 fL (80-100)
[2024-11-28] MEDS ORDERED: OxyCODONE HCL 5 MG TAB PO PRN (07:25)
[2024-11-28] MEDS ORDERED: Potassium Phosphate Dibasic 20 MM in Dextrose 5% 500 ML IV STA (07:27)
[2024-11-28 07:35] VITALS: BP 110/79
[2024-11-28] MEDS ORDERED: Potassium Phos/Sodium Phos 250 MG PACK PO SCH (08:00)
[2024-11-28] MEDS ORDERED: Lactulose 20 GM/30 ML UDC PO ONE (08:45)
[2024-11-28] MEDS ORDERED: Thiamine HCl 100 MG Tab PO SCH (09:00)
[2024-11-28 11:25] VITALS: BP 106/83
[2024-11-28] MEDS ORDERED: Acetaminophen 325 MG TABLET PO PRN (14:50)
[2024-11-28 15:55] VITALS: BP 102/79
[2024-11-28 16:00] LABS: Albumin, Blood 2.9 g/dL (3.4-5.0); Anion Gap 11 mmol/L (3-11); Blood Urea Nitrogen 6 mg/dL (8-24); Bun/Creatinine Ratio 9.4 (12.0-20.0); CO2, Blood 29 mmol/L (21-32); Chloride, Blood 98 mmol/L (98-108); Creatinine, Blood 0.64 mg/dL (0.40-1.00); Glomerular Filtration Rate 115 (60-); Glucose, Blood 101 mg/dL (70-99); Phosphorus, Blood 2.1 mg/dL (2.5-4.9); Potassium, Blood 2.9 mmol/L (3.5-5.5); Sodium, Blood 135 mmol/L (136-145)
--- NOTE | 2024-11-28 18:25 | NUR ---
SUMMARY- AAOX4. SBA. PT ON RA. PT TOLERATING FULL LIQUID DIET. PT DID TRY SALTINE CRACKERS WITH DINNER AND TOLERATED WELL. PAIN WELL CONTROLLED THIS SHIFT. PT GIVEN OXY X1 AND TYLENOL X1 AND PT DESCRIBED SHE PREFERRED THE TYLENOL. PT HAD TWO BOWEL MOVEMENTS THIS SHIFT.
--- NOTE | 2024-11-28 18:30 | NUR ---
1830- THIS RN INFORMED MD CASH THAT PT'S K+=2.9 EARLIER THIS EVENING AND THAT PT WISHED TO ADVANCE TO SOFT AND BITE SIZED FOR BREAKFAST IN THE MORNING. SHREYA GAVE VERBAL TO CHANGE DIET TO SOFT AND BITE SIZED AND TO PLACE ORDER FOR 40 MEQ PO K+ NOW ONE TIME.
[2024-11-28] MEDS ORDERED: Potassium Chloride 20 MEQ TabCR PO ONE (18:35)
[2024-11-28 19:39] VITALS: BP 100/80
[2024-11-29 00:05] VITALS: BP 98/68
[2024-11-29 04:54] VITALS: BP 107/71
[2024-11-29 05:36] LABS: Hematocrit 32.7 % (33.0-51.0); Hemoglobin 11.2 g/dL (11.5-16.0); Mean Corpuscular HGB 36.6 pg (26.0-34.0); Mean Corpuscular HGB Conc 34.3 g/dL (31.5-36.5); Mean Corpuscular Volume 107 fL (80-100); Mean Platelet Volume 11.4 fL (9.1-12.4); Platelet Count 99 K/mm3 (150-400); RDW Coefficient Variation 11.5 % (11.7-14.2); RDW Standard Deviation 45.1 fL (35.1-46.3); Red Blood Cell Count 3.06 M/mm3 (3.80-5.20); White Blood Cell Count 6.07 K/mm3 (4.00-11.30)
[2024-11-29 06:15] LABS: Albumin, Blood 2.8 g/dL (3.4-5.0); Anion Gap 5 mmol/L (3-11); Blood Urea Nitrogen 4 mg/dL (8-24); Bun/Creatinine Ratio 6.9 (12.0-20.0); CO2, Blood 28 mmol/L (21-32); Calcium, Blood 8.2 mg/dL (8.5-10.1); Chloride, Blood 105 mmol/L (98-108); Creatinine, Blood 0.58 mg/dL (0.40-1.00); Glomerular Filtration Rate 118 (60-); Glucose, Blood 92 mg/dL (70-99); Magnesium, Blood 2.1 mg/dL (1.6-2.4); Phosphorus, Blood 1.5 mg/dL (2.5-4.9); Potassium, Blood 3.4 mmol/L (3.5-5.5); Sodium, Blood 135 mmol/L (136-145)
--- NOTE | 2024-11-29 06:22 | NUR ---
SHIFT SUMMARY: Pt is admitted for acute pancreatitis and is a full code. Is alert and able to make needs known. ADLs have been IND to SBA depending on how she was feeling. States that she has some mild ABD pain but it is tolerable. Reinforced that she has pain management if needed. Javi noted sinus in the 90s with no events.
[2024-11-29] MEDS ORDERED: Potassium Chloride 20 MEQ TabCR PO ONE (07:15)
[2024-11-29 07:48] VITALS: BP 112/69
--- NOTE | 2024-11-29 13:24 | NUR ---
PT DISCHARGED AT 1204 WITH ALL PERSONAL BELONGINGS COLLECTED. PT HAD PAPERWORK REVIEW AND EDUCATIONAL MATERIAL SENT WITH PT. PT ESCORTED OUT TO ENTRANCE VIA WHEEL CHAIR TO HAVE [facility] TRANSPORT HOME. NO DISTRESS NOTED.
== END 2024-11-29 12:21 | disposition home or self-care (01) | DRG 682 ==
LOC: ER 21:41 → ICUE 11-26 01:45 → MEDS 11-26 01:45 → ICUE 11-26 03:01 → MEDS 11-27 13:02
PROVIDERS: Internal Medicine; Student in an Organized Health Care Education/Training Program; ADMIT Internal Medicine
PROC: 3E033XZ Introduction of Vasopressor into Peripheral Vein, Percutaneous Approach (ICD-10-PCS; principal; 2024-11-25)
DX: N17.9 Acute kidney failure, unspecified (principal); K85.10 Biliary acute pancreatitis without necrosis or infection; K85.20 Alcohol induced acute pancreatitis without necrosis or infection; E87.1 Hypo-osmolality and hyponatremia; E87.29 Other acidosis; F43.10 Post-traumatic stress disorder, unspecified; F32.A Depression, unspecified; F17.290 Nicotine dependence, other tobacco product, uncomplicated; F15.90 Other stimulant use, unspecified, uncomplicated; E87.8 Other disorders of electrolyte and fluid balance, not elsewhere classified; R74.01 Elevation of levels of liver transaminase levels; E83.39 Other disorders of phosphorus metabolism; E86.0 Dehydration; R73.9 Hyperglycemia, unspecified; K80.20 Calculus of gallbladder without cholecystitis without obstruction; F10.20 Alcohol dependence, uncomplicated; K59.00 Constipation, unspecified; E83.42 Hypomagnesemia; E87.6 Hypokalemia; Z79.899 Other long term (current) drug therapy; Z87.442 Personal history of urinary calculi
CPT/HCPCS: 36415; 71275; 74174; 76705; 80048; 80053; 80069; 81001; 82465; 82746; 82803; 82947; 83036; 83605; 83690; 83735; 83880; 84100; 84132; 84478; 84484; 85025; 85027; 87086; 93005; 93010; 96365; 96367; 96375; 99285-25; A9270; J0696; J1644; J1885; J2270; J2405; J2470; J3010; J3411; J3475; J3480; J7030; J7050; J7060; Q9967

== ENCOUNTER 2024-12-19 06:54 | Observation (INO) | payer BC, OTHER ==
[~2024-12-19] VITALS: Ht 170.2 cm; Wt 53.1 kg
[2024-12-19] MEDS ORDERED: FURO20 PO (07:40)
[2024-12-19 08:48] LABS: BASOPHILS ABSOLUTE AUTO 0.06 K/mm3 (0.00-0.23); BASOPHILS PERCENT AUTO 1 % (0-2); EOSINOPHILS ABSOLUTE AUTO 0.03 K/mm3 (0.00-0.68); EOSINOPHILS PERCENT AUTO 1 % (0-6); Hematocrit 34.8 % (33.0-51.0); Hemoglobin 12.7 g/dL (11.5-16.0); IMMATURE GRAN ABSOLUTE AUTO 0.02 K/mm3 (0.00-0.10); IMMATURE GRAN PERCENT AUTO 0 % (0-1); LYMPHOCYTES ABSOLUTE AUTO 1.25 K/mm3 (0.84-5.20); LYMPHOCYTES PERCENT AUTO 24 % (21-46); MONOCYTES ABSOLUTE AUTO 0.67 K/mm3 (0.16-1.47); MONOCYTES PERCENT AUTO 13 % (4-13); Mean Corpuscular HGB 36.8 pg (26.0-34.0); Mean Corpuscular HGB Conc 36.5 g/dL (31.5-36.5); Mean Corpuscular Volume 101 fL (80-100); Mean Platelet Volume 10.9 fL (9.1-12.4); NEUTROPHILS ABSOLUTE AUTO 3.13 K/mm3 (1.96-9.15); NEUTROPHILS PERCENT AUTO 61 % (41-73); Platelet Count 166 K/mm3 (150-400); RDW Standard Deviation 44.1 fL (35.1-46.3); Red Blood Cell Count 3.45 M/mm3 (3.80-5.20); White Blood Cell Count 5.16 K/mm3 (4.00-11.30)
[2024-12-19 09:13] LABS: Ethanol (Alcohol), Blood, Med <3 mg/dL; Magnesium, Blood 1.6 mg/dL (1.6-2.4)
[2024-12-19 09:16] LABS: Percent Saturation 54.3 % (15.0-50.0)
[2024-12-19 09:17] LABS: Alanine Aminotransfer (ALT/SGP 54 U/L (12-78); Albumin, Blood 3.4 g/dL (3.4-5.0); Albumin/Globulin Ratio 0.8 (0.8-1.8); Alk Phos 194 U/L (50-136); Anion Gap 15 mmol/L (3-11); Aspartate Aminotrans (AST/SGOT 99 U/L (12-37); Bilirubin, Total 1.2 mg/dL (0.1-1.0); Blood Urea Nitrogen 11 mg/dL (8-24); Bun/Creatinine Ratio 15.6 (12.0-20.0); CO2, Blood 36 mmol/L (21-32); Calcium, Blood 8.6 mg/dL (8.5-10.1); Chloride, Blood 77 mmol/L (98-108); Globulin, Blood 4.3 g/dL (2.2-4.0); Glomerular Filtration Rate 113 (60-); Glucose, Blood 84 mg/dL (70-99); Phosphorus, Blood 3.2 mg/dL (2.5-4.9); Potassium, Blood 2.2 mmol/L (3.5-5.5); Sodium, Blood 126 mmol/L (136-145); Total Protein, Blood 7.7 g/dL (6.4-8.2)
[2024-12-19] MEDS ORDERED: Mag Sulfate 1 GM/D5% 100ML 100 ML IV ONE (09:20)
[2024-12-19] MEDS ORDERED: Potassium Chloride 40 MEQ in NS 250 ML IV ONE ×2 (09:20→15:00)
[2024-12-19] MEDS ORDERED: NS 1,000 ML IV SCH (09:50)
[2024-12-19 14:36] VITALS: BP 103/73
[2024-12-19 16:59] LABS: Albumin, Blood 3.4 g/dL (3.4-5.0); Albumin/Globulin Ratio 0.8 (0.8-1.8); Bilirubin, Total 1.1 mg/dL (0.1-1.0); Bun/Creatinine Ratio 14.8 (12.0-20.0); Calcium, Blood 8.7 mg/dL (8.5-10.1); Creatinine, Blood 0.61 mg/dL (0.40-1.00); Globulin, Blood 4.1 g/dL (2.2-4.0); Potassium, Blood 2.5 mmol/L (3.5-5.5); Total Protein, Blood 7.5 g/dL (6.4-8.2)
[2024-12-19] MEDS ORDERED: Potassium Chloride 20 MEQ TabCR PO ONE (18:00)
--- NOTE | 2024-12-19 18:02 | NUR ---
PT WAS ADMITTED THROUGH ED. LOW POTASSIUM. REPLACEMNT THROUGH THE DAY. POSSIBLE D/C TOMORROW . PT HAS NO CHEST PAIN, SOB OR C/O PAIN
[2024-12-19 19:23] VITALS: BP 102/72
[2024-12-19 21:22] LABS: Albumin, Blood 3.3 g/dL (3.4-5.0); Anion Gap 12 mmol/L (3-11); Blood Urea Nitrogen 6 mg/dL (8-24); CO2, Blood 32 mmol/L (21-32); Calcium, Blood 8.4 mg/dL (8.5-10.1); Chloride, Blood 90 mmol/L (98-108); Glomerular Filtration Rate 117 (60-); Glucose, Blood 90 mg/dL (70-99); Phosphorus, Blood 1.4 mg/dL (2.5-4.9); Potassium, Blood 3.5 mmol/L (3.5-5.5); Sodium, Blood 130 mmol/L (136-145)
[2024-12-20 03:31] VITALS: BP 91/70
--- NOTE | 2024-12-20 04:18 | NUR ---
SHIFT SUMMARY PT ALERT ORIENTED X 4 ABLE TO VERBALIZE NEEDS GETS UP IN ROOM AD VINCE. SHE RECEIVED A TOTAL OF POTASSIUM 80 IV AND 40 PO YESTERDAY THEN HER RECHECK AT 1999 WAS 3.5 SHE WILL HAVE MORE LABS DONE THIS AM AND IF NUMBERS STAY GOOD SHE WILL GO HOME TODAY. HER BP THIS AM WAS A LITTLE SOFT AT 91/70 BUT SHE RUNS LOW. REMAINS ON TELEMETRY AT NSR AT 76 WITH BBB. RESTING WELL AT THIS TIME WITH CALL LIGHT IN REACH
[2024-12-20] MEDS ORDERED: Acetaminophen 325 MG TABLET PO PRN (06:20)
[2024-12-20 06:26] LABS: BASOPHILS ABSOLUTE AUTO 0.05 K/mm3 (0.00-0.23); BASOPHILS PERCENT AUTO 1 % (0-2); EOSINOPHILS ABSOLUTE AUTO 0.13 K/mm3 (0.00-0.68); EOSINOPHILS PERCENT AUTO 3 % (0-6); Hemoglobin 10.7 g/dL (11.5-16.0); IMMATURE GRAN ABSOLUTE AUTO 0.01 K/mm3 (0.00-0.10); IMMATURE GRAN PERCENT AUTO 0 % (0-1); LYMPHOCYTES PERCENT AUTO 34 % (21-46); MONOCYTES ABSOLUTE AUTO 0.49 K/mm3 (0.16-1.47); MONOCYTES PERCENT AUTO 11 % (4-13); Mean Corpuscular HGB 35.8 pg (26.0-34.0); Mean Corpuscular HGB Conc 34.5 g/dL (31.5-36.5); Mean Corpuscular Volume 104 fL (80-100); Mean Platelet Volume 11.1 fL (9.1-12.4); NEUTROPHILS ABSOLUTE AUTO 2.23 K/mm3 (1.96-9.15); NEUTROPHILS PERCENT AUTO 51 % (41-73); Platelet Count 136 K/mm3 (150-400); RDW Coefficient Variation 11.9 % (11.7-14.2); RDW Standard Deviation 45.6 fL (35.1-46.3); Red Blood Cell Count 2.99 M/mm3 (3.80-5.20); White Blood Cell Count 4.41 K/mm3 (4.00-11.30)
[2024-12-20 06:56] LABS: Albumin, Blood 2.8 g/dL (3.4-5.0); Albumin/Globulin Ratio 0.8 (0.8-1.8); Bilirubin, Total 0.8 mg/dL (0.1-1.0); Bun/Creatinine Ratio 10.4 (12.0-20.0); Calcium, Blood 7.9 mg/dL (8.5-10.1); Creatinine, Blood 0.58 mg/dL (0.40-1.00); Globulin, Blood 3.4 g/dL (2.2-4.0); Total Protein, Blood 6.2 g/dL (6.4-8.2)
[2024-12-20] MEDS ORDERED: Potassium Chl 20MEQ/Water100ML 100 ML IV SCH (07:15)
[2024-12-20] MEDS ORDERED: Potassium Chl 20MEQ/Water100ML 100 ML IV STA (07:33)
[2024-12-20 07:35] VITALS: BP 91/63
[2024-12-20] MEDS ORDERED: Potassium Chloride 10 Meq Tablet SA PO ONE ×2 (07:35→09:00)
[2024-12-20] MEDS ORDERED: NS KCL 40 mEq 1,000 ML IV SCH (07:55)
[2024-12-20] MEDS ORDERED: Sodium Phosphate 20 MM in Dextrose 5% 500 ML IV STA (08:35)
[2024-12-20] MEDS ORDERED: Enoxaparin 40 MG/0.4 ML SYR SC SCH (09:00)
[2024-12-20 10:44] LABS: Bun/Creatinine Ratio 11.4 (12.0-20.0); Calcium, Blood 8.1 mg/dL (8.5-10.1); Creatinine, Blood 0.61 mg/dL (0.40-1.00); Potassium, Blood 3.6 mmol/L (3.5-5.5)
[2024-12-20] MEDS ORDERED: K-Phos Origina500 MG PO (13:13)
--- NOTE | 2024-12-20 13:30 | NUR ---
PT DISCHARGED TO HOME. DISCHARGE INSTRUCTIONS PROVIDED AND EDUCATED ON AT TIME OF DISCHARGE. ALL VALUABLES RETURNED AND SENT HOME WITH THE PT.
== END 2024-12-20 13:30 | disposition home or self-care (01) ==
LOC: ER 06:54 → MEDS 06:55 → ENPENDDIS 12-20 12:08 → MEDS 12-20 13:30
PROVIDERS: Emergency Medicine; Family Medicine; Family Medicine Adult Medicine; ADMIT Internal Medicine
DX: E87.6 Hypokalemia (principal); I45.81 Long QT syndrome; E87.1 Hypo-osmolality and hyponatremia; E83.42 Hypomagnesemia; E80.6 Other disorders of bilirubin metabolism; F10.20 Alcohol dependence, uncomplicated; F17.210 Nicotine dependence, cigarettes, uncomplicated; Z88.5 Allergy status to narcotic agent; Z88.8 Allergy status to other drugs, medicaments and biological substances; Z79.899 Other long term (current) drug therapy
CPT/HCPCS: 36415; 80048; 80053; 80069; 80320; 82728; 83540; 83550; 83735; 84100; 85025; 93005; 93010; 94762; 96365; 96366; 96367; 96372; 96376; 99284-25; A9270; G0378; J1650; J3475; J3480; J7030; J7050